=== PATIENT | female | born 1945 | race Caucasian/White ===

== ENCOUNTER 2023-10-14 21:09 | Emergency (ER) | payer MEDICARE, MEDICAID ==
[~2023-10-14] VITALS: Ht 165.1 cm; Wt 91.0 kg
[2023-10-14] MEDS: methylPREDNISolone sod succ 125mg/2ml vial IV ONE (22:04)
[2023-10-14 22:06] VITALS: RESP 18
[2023-10-14 22:30] VITALS: BP 131/78; PULSE 73; O2SAT 92
[2023-10-14 22:36] LABS: ALANINE AMINOTRANSFERASE 24 U/L (12-78); ALBUMIN 3.7 G/DL (3.4-5.0); ALKALINE PHOSPHATASE 57 IU/L (46-116); ANION GAP 8 (8-16); ASPARTATE AMINO TRANSFERASE 18 U/L (10-37); BILIRUBIN,TOTAL 0.2 MG/DL (0.1-1.0); BLOOD UREA NITROGEN 24 MG/DL (7-18); BUN/CREATININE RATIO 27.6 (10.0-20.0); CALCIUM 9.5 MG/DL (8.5-10.1); CHLORIDE 106 MMOL/L (99-107); CREATININE 0.87 MG/DL (0.40-0.90); GLUCOSE 103 MG/DL (70-104); POTASSIUM 4.7 MMOL/L (3.5-5.1); SODIUM 143 MMOL/L (135-145); TOTAL CARBON DIOXIDE 29.1 MMOL/L (24-32); TOTAL PROTEIN 7.4 G/DL (6.4-8.2); eCRCL 1 ML/MIN; eGFR 63 ML/MIN
[2023-10-14 22:43] LABS: PRO BRAIN NATRIURETIC PEPTIDE 216 PG/ML (0-450)
[2023-10-14 22:56] LABS: BASOPHILS # (AUTO) 0.1 X10'3 (0-0.2); BASOPHILS % (AUTO) 1.2 % (0-1); EOSINOPHILS # (AUTO) 0.3 X10'3 (0-0.9); EOSINOPHILS % (AUTO) 5.9 % (0-6); HEMATOCRIT 37.8 % (35.0-45.0); HEMOGLOBIN 12.6 g/dl (12.0-16.0); LYMPHOCYTES # (AUTO) 1.6 X10'3 (1.1-4.8); LYMPHOCYTES % (AUTO) 29.3 % (21-51); MEAN CORPUSCULAR HEMOGLOBIN 30.5 PG (27.0-31.0); MEAN CORPUSCULAR HGB CONC 33.3 g/dL (33.0-36.5); MEAN CORPUSCULAR VOLUME 91.4 FL (78-98); MEAN PLATELET VOLUME 8.2 FL (7.4-10.4); MONOCYTES # (AUTO) 0.5 X10'3 (0-0.9); MONOCYTES % (AUTO) 8.3 % (2-12); NEUTROPHILS # (AUTO) 3.1 X10'3 (1.8-7.7); NEUTROPHILS % (AUTO) 55.3 % (42-75); PLATELET COUNT 197 X10'3 (140-440); RED BLOOD COUNT 4.13 X10'6 (4.20-5.60); RED CELL DISTRIBUTION WIDTH 14.4 % (11.5-14.5); WHITE BLOOD COUNT 5.5 X10'3 (4.5-11.0)
[2023-10-15] MEDS ORDERED: APIX5TAB3 PO (00:23)
[2023-10-15] MEDS: apixaban 5mg tablet PO ONE (00:45)
[2023-10-15 01:43] VITALS: TEMP 98.6
== END 2023-10-15 03:01 | disposition home or self-care (01) ==
LOC: ER 21:10
DX: I48.92 Unspecified atrial flutter (principal); R50.9 Fever, unspecified; J45.909 Unspecified asthma, uncomplicated; Z88.0 Allergy status to penicillin; Z88.2 Allergy status to sulfonamides; Z91.041 Radiographic dye allergy status; Z79.899 Other long term (current) drug therapy
CPT/HCPCS: 36415; 71045; 80053; 83605; 83880; 84145; 84484; 85025; 87040; 93005; 96374; 99285; J2930; 87502; 87503

== ENCOUNTER 2024-04-30 16:15 | Inpatient (IN) | payer MEDICARE, OTHER ==
[~2024-04-30] VITALS: Ht 165.1 cm; Wt 73.2 kg
[~2024-04-30 16:15] MED LIST: APIX5TAB3 PO
[2024-04-30 17:24] LABS: BASOPHILS # (AUTO) 0.1 X10'3 (0-0.2); BASOPHILS % (AUTO) 1.1 % (0-1); EOSINOPHILS # (AUTO) 0.6 X10'3 (0-0.9); EOSINOPHILS % (AUTO) 7.6 % (0-6); LYMPHOCYTES # (AUTO) 1.4 X10'3 (1.1-4.8); LYMPHOCYTES % (AUTO) 17.5 % (21-51); MEAN CORPUSCULAR HEMOGLOBIN 29.7 PG (27.0-31.0); MEAN CORPUSCULAR HGB CONC 32.6 g/dL (33.0-36.5); MEAN PLATELET VOLUME 8.3 FL (7.4-10.4); MONOCYTES # (AUTO) 0.6 X10'3 (0-0.9); MONOCYTES % (AUTO) 7.3 % (2-12); NEUTROPHILS # (AUTO) 5.2 X10'3 (1.8-7.7); NEUTROPHILS % (AUTO) 66.5 % (42-75); PLATELET COUNT 296 X10'3 (140-440); RED BLOOD COUNT 4.72 X10'6 (4.20-5.60); RED CELL DISTRIBUTION WIDTH 14.6 % (11.5-14.5); WHITE BLOOD COUNT 7.8 X10'3 (4.5-11.0)
[2024-04-30] MEDS: ipratropium/albuterol 3ml nebule NEB STA (17:26)
[2024-04-30 17:27] VITALS: PULSE 80; RESP 20
[2024-04-30 17:31] VITALS: PULSE 80; RESP 18
[2024-04-30 17:38] LABS: ALANINE AMINOTRANSFERASE 20 U/L (12-78); ALBUMIN/GLOBULIN RATIO 0.7 (1.1-1.5); ALKALINE PHOSPHATASE 90 IU/L (46-116); ANION GAP 9 (8-16); ASPARTATE AMINO TRANSFERASE 29 U/L (10-37); BILIRUBIN,TOTAL 0.3 MG/DL (0.1-1.0); BLOOD UREA NITROGEN 23 MG/DL (7-18); BUN/CREATININE RATIO 27.7 (10.0-20.0); CALCIUM 9.1 MG/DL (8.5-10.1); CHLORIDE 103 MMOL/L (99-107); CREATININE 0.83 MG/DL (0.40-0.90); GLUCOSE 79 MG/DL (70-104); POTASSIUM 4.5 MMOL/L (3.5-5.1); SODIUM 140 MMOL/L (135-145); TOTAL CARBON DIOXIDE 28.1 MMOL/L (24-32); TOTAL PROTEIN 7.2 G/DL (6.4-8.2); eCRCL 51 ML/MIN; eGFR 67 ML/MIN
[2024-04-30] MEDS: CefTRIAXone/D5W-Rocephin 1gm 50 ML IV ONE (18:52)
[2024-04-30] MEDS: azithromycin/NS 500mg/250ml 250 ML IV ONE (19:22)
[2024-04-30] MEDS ORDERED: HYDR-3717 PO (19:52)
[2024-04-30] MEDS ORDERED: ACET-222 PO (19:52)
[2024-04-30] MEDS ORDERED: TRAM50TA2 PO (19:52)
[2024-04-30] MEDS ORDERED: LOP12.5T PO (19:52)
[2024-04-30] MEDS ORDERED: FLUT1DIS20 INH (19:52)
[2024-04-30] MEDS ORDERED: DULO20CA50 PO (19:52)
[2024-04-30] MEDS ORDERED: GABA300C PO (19:52)
[2024-04-30] MEDS ORDERED: OMEP40CA21 PO (19:52)
[2024-04-30] MEDS ORDERED: ALB0.5UD IH (19:52)
[2024-04-30] MEDS ORDERED: NITR100C PO (19:52)
[2024-04-30] MEDS ORDERED: mag hydrox/Alum hydrox/simeth 30ml oral suspension PO PRN (21:20)
[2024-04-30] MEDS ORDERED: magnesium Cl slow-release 64mg tablet PO PRN (21:20)
[2024-04-30] MEDS ORDERED: magnesium sulf-water 4G/100mL 100 ML IV PRN (21:20)
[2024-04-30] MEDS ORDERED: magnesium sulf-water 2g/50mL 50 ML IV PRN (21:20)
[2024-04-30] MEDS ORDERED: ondansetron/PF 4mg/2ml inj IV PRN (21:20)
[2024-04-30] MEDS ORDERED: acetaminophen 325mg tablet PO PRN (21:20)
[2024-04-30] MEDS ORDERED: potassium Cl 40MEQ/1/2NS 520ml 520 ML IV PRN (21:20)
[2024-04-30] MEDS ORDERED: potassium Cl 20 mEq SR tablet PO PRN ×2 (21:20)
[2024-04-30] MEDS ORDERED: morphine 2 MG/ML inj. syringe IV PRN ×2 (21:20)
[2024-04-30] MEDS: metoprolol tartrate 1mg/ml inj IV ONE ×2 (21:23→22:22)
[2024-04-30] MEDS ORDERED: traMADol 50MG tablet PO PRN (21:25)
[2024-04-30] MEDS ORDERED: hydrOXYzine 10 MG tablet PO PRN (21:25)
[2024-04-30] MEDS: metoprolol tartrate 50mg tablet PO SCH (22:10)
[2024-04-30] MEDS: diphenhydrAMINE 25mg capsule PO SCH (22:14)
[2024-04-30] MEDS: acetaminophen 325mg tablet PO SCH (22:14)
[2024-04-30 22:48] VITALS: BP 155/58; RESP 14; TEMP 99.2; O2SAT 94
[2024-04-30] MEDS: ipratropium/albuterol 3ml nebule NEB SCH (22:50)
[2024-05-01] VITALS (14 sets, daily range): BP systolic 117–148; BP diastolic 57–91; PULSE 76–116; RESP 14–20; TEMP 97.4–99.4; O2SAT 92–97
[2024-05-01] MEDS: gabapentin 300mg capsule PO SCH (00:27)
[2024-05-01] MEDS: methylPREDNISolone sod succ 125mg/2ml vial IV SCH (00:27)
[2024-05-01] MEDS: normal saline 1000ml 1,000 ML IV SCH (00:30)
[2024-05-01 07:14] LABS: BASOPHILS % (AUTO) 0.4 % (0-1); EOSINOPHILS % (AUTO) 0.2 % (0-6); HEMATOCRIT 40.9 % (35.0-45.0); HEMOGLOBIN 13.3 g/dl (12.0-16.0); LYMPHOCYTES # (AUTO) 0.7 X10'3 (1.1-4.8); MEAN CORPUSCULAR HEMOGLOBIN 29.4 PG (27.0-31.0); MEAN CORPUSCULAR HGB CONC 32.4 g/dL (33.0-36.5); MEAN CORPUSCULAR VOLUME 90.8 FL (78-98); MEAN PLATELET VOLUME 8.3 FL (7.4-10.4); MONOCYTES # (AUTO) 0.1 X10'3 (0-0.9); MONOCYTES % (AUTO) 1.1 % (2-12); NEUTROPHILS # (AUTO) 7.5 X10'3 (1.8-7.7); NEUTROPHILS % (AUTO) 90.3 % (42-75); PLATELET COUNT 233 X10'3 (140-440); RED BLOOD COUNT 4.51 X10'6 (4.20-5.60); RED CELL DISTRIBUTION WIDTH 14.3 % (11.5-14.5); WHITE BLOOD COUNT 8.3 X10'3 (4.5-11.0)
[2024-05-01 07:31] LABS: ALANINE AMINOTRANSFERASE 13 U/L (12-78); ALBUMIN 2.9 G/DL (3.4-5.0); ALBUMIN/GLOBULIN RATIO 0.7 (1.1-1.5); ALKALINE PHOSPHATASE 86 IU/L (46-116); ANION GAP 9 (8-16); ASPARTATE AMINO TRANSFERASE 32 U/L (10-37); BILIRUBIN,TOTAL 0.3 MG/DL (0.1-1.0); BLOOD UREA NITROGEN 24 MG/DL (7-18); BUN/CREATININE RATIO 33.3 (10.0-20.0); CALCIUM 9.2 MG/DL (8.5-10.1); CHLORIDE 107 MMOL/L (99-107); CREATININE 0.72 MG/DL (0.40-0.90); GLUCOSE 160 MG/DL (70-104); MAGNESIUM 1.7 MG/DL (1.5-2.4); POTASSIUM 4.7 MMOL/L (3.5-5.1); SODIUM 140 MMOL/L (135-145); TOTAL CARBON DIOXIDE 23.6 MMOL/L (24-32); TOTAL PROTEIN 6.8 G/DL (6.4-8.2); eCRCL 59 ML/MIN; eGFR 79 ML/MIN
[2024-05-01] MEDS: nitrofurantoin macrocrystal 100mg capsule PO SCH (08:00)
[2024-05-01] MEDS: K and/or MAG REPLACEMENT MC SCH (08:00)
[2024-05-01] MEDS: furosemide 20 MG/2 ML vial IV ONE (08:10)
[2024-05-01] MEDS: pantoprazole 40mg Tablet.DR PO SCH (08:21)
[2024-05-01] MEDS: docusate sod 100mg capsule PO SCH (08:21)
[2024-05-01] MEDS: duloxetine 20mg capsule.DR PO SCH (08:21)
[2024-05-01 08:25] LABS: C-REACTIVE PROTEIN 3.59 MG/DL (0.0-0.5); PRO BRAIN NATRIURETIC PEPTIDE 446 PG/ML (0-450)
[2024-05-01 08:41] LABS: HEMOGLOBIN A1C 5.7 % (4.5-6.2)
[2024-05-01 08:45] LABS: CHOL/HDL RATIO 4.5 (0.00-4.99); CHOLESTEROL 178 MG/DL (0-200); FREE T4 (FREE THYROXINE) 1.16 NG/DL (0.73-1.40); HDL CHOLESTEROL 40 MG/DL (35-60); LDL CHOLESTEROL 113 MG/DL (50-100); THYROID STIMULATING HORMONE 1.41 ulU/ml (0.34-4.50); TRIGLYCERIDES 70 MG/DL (20-135)
[2024-05-01 08:57] LABS: D-DIMER 0.42 MG/L FEU (0-0.50)
[2024-05-01] MEDS: ondansetron/PF 4mg/2ml inj IV PRN (12:09)
[2024-05-01] MEDS ORDERED: piperacillin/tazo 3.375gm/50ml 50 ML IV SCH (12:45)
[2024-05-01] MEDS: levoFLOXACIN-Levaquin 500mg/D5 100 ML IV SCH (13:10)
[2024-05-01] MEDS ORDERED: nitrofuran monohydrate/nitrofuran macrocrysal 100 MG (MacroBID) capsule PO SCH (14:11)
[2024-05-01] MEDS: azithromycin/NS 500mg/250ml 250 ML IV SCH (15:43)
[2024-05-01] MEDS ORDERED: CefTRIAXone/D5W-Rocephin 1gm 50 ML IV SCH (16:00)
[2024-05-01] MEDS ORDERED: metroNIDAZOLE-Flagyl 500mg/NS 100 ML IV SCH (16:00)
[2024-05-01] MEDS: piperacillin/tazo 3.375gm/50ml 50 ML IV SCH (16:55)
[2024-05-01] MEDS: apixaban 5mg tablet PO SCH (20:31)
[2024-05-02] VITALS (21 sets, daily range): BP systolic 74–158; BP diastolic 55–70; PULSE 74–101; RESP 12–22; TEMP 97.2–99.1; O2SAT 92–97
[2024-05-02 06:36] LABS: BASOPHILS % (AUTO) 0 % (0-1); EOSINOPHILS % (AUTO) 0 % (0-6); HEMATOCRIT 41.3 % (35.0-45.0); HEMOGLOBIN 13.2 g/dl (12.0-16.0); LYMPHOCYTES # (AUTO) 0.9 X10'3 (1.1-4.8); LYMPHOCYTES % (AUTO) 12.7 % (21-51); MEAN CORPUSCULAR VOLUME 90.6 FL (78-98); MEAN PLATELET VOLUME 8.3 FL (7.4-10.4); MONOCYTES # (AUTO) 0.3 X10'3 (0-0.9); MONOCYTES % (AUTO) 3.9 % (2-12); NEUTROPHILS # (AUTO) 5.7 X10'3 (1.8-7.7); NEUTROPHILS % (AUTO) 83.4 % (42-75); PLATELET COUNT 320 X10'3 (140-440); RED BLOOD COUNT 4.55 X10'6 (4.20-5.60); RED CELL DISTRIBUTION WIDTH 14.7 % (11.5-14.5); WHITE BLOOD COUNT 6.9 X10'3 (4.5-11.0)
[2024-05-02 06:55] LABS: ALANINE AMINOTRANSFERASE 19 U/L (12-78); ALBUMIN/GLOBULIN RATIO 0.8 (1.1-1.5); ALKALINE PHOSPHATASE 74 IU/L (46-116); ANION GAP 10 (8-16); ASPARTATE AMINO TRANSFERASE 29 U/L (10-37); BILIRUBIN,TOTAL 0.3 MG/DL (0.1-1.0); BLOOD UREA NITROGEN 27 MG/DL (7-18); BUN/CREATININE RATIO 31.8 (10.0-20.0); CALCIUM 9.3 MG/DL (8.5-10.1); CHLORIDE 105 MMOL/L (99-107); CREATININE 0.85 MG/DL (0.40-0.90); GLUCOSE 149 MG/DL (70-104); MAGNESIUM 1.8 MG/DL (1.5-2.4); SODIUM 140 MMOL/L (135-145); eCRCL 50 ML/MIN; eGFR 65 ML/MIN
[2024-05-02 07:15] LABS: POTASSIUM 4.3 MMOL/L (3.5-5.1)
[2024-05-02] MEDS ORDERED: metoprolol tartrate 25mg tablet PO SCH (09:25)
[2024-05-02] MEDS: metoprolol tartrate 25mg tablet PO SCH (10:09)
[2024-05-02] MEDS: nitrofuran monohydrate/nitrofuran macrocrysal 100 MG (MacroBID) capsule PO SCH (10:15)
[2024-05-02] MEDS ORDERED: gabapentin 300mg capsule PO SCH (16:32)
[2024-05-02] MEDS: gabapentin 300mg capsule PO SCH ×2 (17:21→23:13)
[2024-05-02 18:20] LABS: ABG BASE EXCESS -0.2 mmol/L (-2.0-3.0); ABG HCO3 25.1 mmol/L (21.0-28.0); ABG OXYGEN SATURATION 95.6 % (94.0-98.0); ABG PCO2 (T) 42.2 mmHg (32.0-45.0); ABG PO2 (T) 70.9 mmHg (83.0-108.0); ALLEN'S TEST POSITIVE; FCOHb 1.8 % (0.5-1.5); FHHb 4.3 % (0.0-5.0); FMetHb 0.3 % (0.0-1.5); FO2Hb 93.6 % (94.0-98.0); MODE NASAL CANNULA; PATIENT TEMPERATURE 36.4; TOTAL HEMOGLOBIN 13.8 G/dl (12.0-16.0)
[2024-05-02] MEDS: ipratropium/albuterol 3ml nebule NEB PRN (20:12)
[2024-05-02] MEDS: acetylcysteine 200 MG/ml 4ml vial INH ONE (20:13)
[2024-05-02] MEDS: magnesium hydroxide 30ml (MOM) UD suspension PO PRN (20:23)
[2024-05-02] MEDS: furosemide 20 MG/2 ML vial IV SCH (20:33)
[2024-05-03] VITALS (18 sets, daily range): BP systolic 101–144; BP diastolic 57–85; PULSE 58–88; RESP 12–19; TEMP 97–98.5; O2SAT 92–99
[2024-05-03 02:53] LABS: BILIRUBIN,URINE NEGATIVE (Neg); CLARITY,URINE CLEAR (Clear); COLOR,URINE YELLOW (Yellow); GLUCOSE, URINE NEGATIVE (Neg); KETONES,URINE NEGATIVE (Neg); LEUKOCYTE ESTERASE ,URINE NEGATIVE (Neg); NITRITES, URINE NEGATIVE (Neg); OCCULT BLOOD,URINE NEGATIVE (Neg); PH,URINE 5.5 (4.8-8.0); PROTEIN,URINE NEGATIVE (Neg); UROBILINOGEN,URINE 0.2 E.U/dL (0.2-1.0)
[2024-05-03 03:02] LABS: UA COLLECTION TYPE STRAIGHT CATH
[2024-05-03] MEDS: acetylcysteine 200 MG/ml 4ml vial INH ONE (03:22)
[2024-05-03 07:10] LABS: BASOPHILS % (AUTO) 0 % (0-1); EOSINOPHILS % (AUTO) 0 % (0-6); HEMATOCRIT 39.3 % (35.0-45.0); HEMOGLOBIN 12.8 g/dl (12.0-16.0); LYMPHOCYTES # (AUTO) 0.6 X10'3 (1.1-4.8); LYMPHOCYTES % (AUTO) 9.4 % (21-51); MEAN CORPUSCULAR HEMOGLOBIN 29.5 PG (27.0-31.0); MEAN CORPUSCULAR HGB CONC 32.5 g/dL (33.0-36.5); MEAN CORPUSCULAR VOLUME 90.7 FL (78-98); MEAN PLATELET VOLUME 8.3 FL (7.4-10.4); MONOCYTES # (AUTO) 0.3 X10'3 (0-0.9); MONOCYTES % (AUTO) 4.4 % (2-12); NEUTROPHILS # (AUTO) 5.7 X10'3 (1.8-7.7); NEUTROPHILS % (AUTO) 86.2 % (42-75); PLATELET COUNT 270 X10'3 (140-440); RED BLOOD COUNT 4.33 X10'6 (4.20-5.60); RED CELL DISTRIBUTION WIDTH 14.4 % (11.5-14.5); WHITE BLOOD COUNT 6.6 X10'3 (4.5-11.0)
[2024-05-03 07:50] LABS: ALANINE AMINOTRANSFERASE 19 U/L (12-78); ALBUMIN/GLOBULIN RATIO 0.8 (1.1-1.5); ALKALINE PHOSPHATASE 60 IU/L (46-116); ANION GAP 6 (8-16); ASPARTATE AMINO TRANSFERASE 18 U/L (10-37); BILIRUBIN,TOTAL 0.4 MG/DL (0.1-1.0); BLOOD UREA NITROGEN 33 MG/DL (7-18); BUN/CREATININE RATIO 33.3 (10.0-20.0); CALCIUM 9.5 MG/DL (8.5-10.1); CHLORIDE 106 MMOL/L (99-107); CREATININE 0.99 MG/DL (0.40-0.90); GLUCOSE 168 MG/DL (70-104); MAGNESIUM 2.1 MG/DL (1.5-2.4); POTASSIUM 4.4 MMOL/L (3.5-5.1); SODIUM 142 MMOL/L (135-145); TOTAL CARBON DIOXIDE 29.7 MMOL/L (24-32); TOTAL PROTEIN 6.8 G/DL (6.4-8.2); eCRCL 43 ML/MIN; eGFR 54 ML/MIN
[2024-05-04] VITALS (14 sets, daily range): BP systolic 103–151; BP diastolic 55–79; PULSE 57–90; RESP 14–20; TEMP 96.9–98.9; O2SAT 91–97
[2024-05-04 07:50] LABS: BASOPHILS % (AUTO) 0 % (0-1); EOSINOPHILS % (AUTO) 0 % (0-6); HEMATOCRIT 38.2 % (35.0-45.0); HEMOGLOBIN 12.1 g/dl (12.0-16.0); LYMPHOCYTES # (AUTO) 0.6 X10'3 (1.1-4.8); LYMPHOCYTES % (AUTO) 13.7 % (21-51); MEAN CORPUSCULAR HEMOGLOBIN 28.9 PG (27.0-31.0); MEAN CORPUSCULAR HGB CONC 31.8 g/dL (33.0-36.5); MEAN PLATELET VOLUME 8.4 FL (7.4-10.4); MONOCYTES # (AUTO) 0.2 X10'3 (0-0.9); MONOCYTES % (AUTO) 4.2 % (2-12); NEUTROPHILS # (AUTO) 3.8 X10'3 (1.8-7.7); NEUTROPHILS % (AUTO) 82.1 % (42-75); PLATELET COUNT 215 X10'3 (140-440); RED CELL DISTRIBUTION WIDTH 14.6 % (11.5-14.5); WHITE BLOOD COUNT 4.7 X10'3 (4.5-11.0)
[2024-05-04 08:02] LABS: ALANINE AMINOTRANSFERASE 25 U/L (12-78); ALBUMIN/GLOBULIN RATIO 0.8 (1.1-1.5); ALKALINE PHOSPHATASE 49 IU/L (46-116); ANION GAP 2 (8-16); ASPARTATE AMINO TRANSFERASE 17 U/L (10-37); BILIRUBIN,TOTAL 0.4 MG/DL (0.1-1.0); BLOOD UREA NITROGEN 30 MG/DL (7-18); CALCIUM 9.3 MG/DL (8.5-10.1); CHLORIDE 105 MMOL/L (99-107); CREATININE 0.81 MG/DL (0.40-0.90); GLUCOSE 156 MG/DL (70-104); POTASSIUM 4.5 MMOL/L (3.5-5.1); SODIUM 141 MMOL/L (135-145); TOTAL CARBON DIOXIDE 33.7 MMOL/L (24-32); TOTAL PROTEIN 6.7 G/DL (6.4-8.2); eCRCL 52 ML/MIN; eGFR 69 ML/MIN
[2024-05-04] MEDS: bisacodyl 10mg suppository rectal RC STA (16:32)
[2024-05-04] MEDS: docusate sod 100mg capsule PO SCH (20:18)
[2024-05-05] VITALS (18 sets, daily range): BP systolic 109–159; BP diastolic 31–84; PULSE 57–89; RESP 12–19; TEMP 97.1–98.2; O2SAT 93–100
[2024-05-05 08:34] LABS: BASOPHILS % (AUTO) 0.1 % (0-1); EOSINOPHILS % (AUTO) 0 % (0-6); HEMATOCRIT 38.3 % (35.0-45.0); HEMOGLOBIN 12.3 g/dl (12.0-16.0); LYMPHOCYTES # (AUTO) 0.8 X10'3 (1.1-4.8); LYMPHOCYTES % (AUTO) 16.7 % (21-51); MEAN CORPUSCULAR HEMOGLOBIN 29.4 PG (27.0-31.0); MEAN CORPUSCULAR HGB CONC 32.2 g/dL (33.0-36.5); MEAN CORPUSCULAR VOLUME 91.4 FL (78-98); MEAN PLATELET VOLUME 8.4 FL (7.4-10.4); MONOCYTES # (AUTO) 0.2 X10'3 (0-0.9); MONOCYTES % (AUTO) 4.8 % (2-12); NEUTROPHILS # (AUTO) 3.7 X10'3 (1.8-7.7); NEUTROPHILS % (AUTO) 78.4 % (42-75); PLATELET COUNT 180 X10'3 (140-440); RED BLOOD COUNT 4.19 X10'6 (4.20-5.60); RED CELL DISTRIBUTION WIDTH 14.5 % (11.5-14.5); WHITE BLOOD COUNT 4.8 X10'3 (4.5-11.0)
[2024-05-05 08:45] LABS: ALANINE AMINOTRANSFERASE 26 U/L (12-78); ALBUMIN 2.9 G/DL (3.4-5.0); ALBUMIN/GLOBULIN RATIO 0.8 (1.1-1.5); ALKALINE PHOSPHATASE 46 IU/L (46-116); ANION GAP 6 (8-16); ASPARTATE AMINO TRANSFERASE 18 U/L (10-37); BILIRUBIN,TOTAL 0.5 MG/DL (0.1-1.0); BLOOD UREA NITROGEN 29 MG/DL (7-18); BUN/CREATININE RATIO 37.7 (10.0-20.0); CHLORIDE 103 MMOL/L (99-107); CREATININE 0.77 MG/DL (0.40-0.90); GLUCOSE 146 MG/DL (70-104); POTASSIUM 4.4 MMOL/L (3.5-5.1); SODIUM 141 MMOL/L (135-145); TOTAL CARBON DIOXIDE 32.5 MMOL/L (24-32); TOTAL PROTEIN 6.5 G/DL (6.4-8.2); eCRCL 55 ML/MIN; eGFR 73 ML/MIN
[2024-05-05] MEDS ORDERED: PRED10TA23 PO (09:05)
[2024-05-05] MEDS ORDERED: EMPA10TA PO (10:28)
[2024-05-06] VITALS (18 sets, daily range): BP systolic 111–161; BP diastolic 55–73; PULSE 52–112; RESP 12–20; TEMP 97.3–99.1; O2SAT 92–99
[2024-05-06] MEDS: lactose-reduced food (Ensure Enlive) - 237ml bottle PO SCH (17:30)
[2024-05-07] VITALS (9 sets, daily range): BP systolic 135–153; BP diastolic 73–81; PULSE 50–72; RESP 14–19; TEMP 97.7–98.9; O2SAT 75–98
[2024-05-07] MEDS: piperacillin/tazo 3.375gm/50ml 50 ML IV SCH (00:23)
== END 2024-05-07 14:59 | DRG 177 ==
LOC: ER 16:15 → ED HOLD 19:31 → EDBEDREQ 20:36 → EDBEDREQSVC 21:34 → EDBEDREQ 21:34 → PCU 3S 22:36
PROVIDERS: ADMIT Internal Medicine Critical Care Medicine; ATTEND Family Medicine
DX: J69.0 Pneumonitis due to inhalation of food and vomit (principal); I50.33 Acute on chronic diastolic (congestive) heart failure; J96.01 Acute respiratory failure with hypoxia; I48.92 Unspecified atrial flutter; J44.9 Chronic obstructive pulmonary disease, unspecified; Z20.822 Contact with and (suspected) exposure to COVID-19; I11.0 Hypertensive heart disease with heart failure; F32.A Depression, unspecified; G20.A1 Parkinson's disease without dyskinesia, without mention of fluctuations; F02.80 Dementia in other diseases classified elsewhere, unspecified severity, without behavioral disturbance, psychotic disturbance, mood disturbance, and anxiety; Z74.01 Bed confinement status
CPT/HCPCS: 36415; 36600; 71045; 71250; 80053; 80061; 81003; 82330; 82803; 83036; 83605; 83735; 83880; 83970; 84145; 84439; 84443; 85018; 85025; 85379; 85651; 86140; 87040; 87081; 87811; 92508; 92616; 93005; 93306; 94640; 94760; 96365; 96367; 97161; 97530; 99285; A6213; A6250; G0378; J0456; J0696; J1940; J2405; J2543; J2919; J3490; J7030; J7040; Q0163

== ENCOUNTER 2024-05-10 16:08 | Inpatient (IN) | payer MEDICARE, OTHER, MEDICAID ==
[~2024-05-10] VITALS: Ht 165.1 cm; Wt 81.0 kg
[~2024-05-10 16:08] MED LIST changes: +ACET-222 PO; +ALB0.5UD IH; +DULO20CA50 PO; +EMPA10TA PO; +FLUT1DIS20 INH; +GABA300C PO; +HYDR-3717 PO; +LOP12.5T PO; +NITR100C PO; +OMEP40CA21 PO; +PRED10TA23 PO; +TRAM50TA2 PO
[2024-05-10 17:42] LABS: BILIRUBIN,URINE NEGATIVE (Neg); CLARITY,URINE CLEAR (Clear); COLOR,URINE YELLOW (Yellow); GLUCOSE, URINE NEGATIVE (Neg); KETONES,URINE NEGATIVE (Neg); LEUKOCYTE ESTERASE ,URINE NEGATIVE (Neg); NITRITES, URINE NEGATIVE (Neg); OCCULT BLOOD,URINE NEGATIVE (Neg); PROTEIN,URINE NEGATIVE (Neg); UROBILINOGEN,URINE 0.2 E.U/dL (0.2-1.0)
[2024-05-10 17:45] LABS: BASOPHILS % (AUTO) 0.1 % (0-1); EOSINOPHILS # (AUTO) 0.1 X10'3 (0-0.9); EOSINOPHILS % (AUTO) 1.2 % (0-6); HEMATOCRIT 41.8 % (35.0-45.0); HEMOGLOBIN 13.5 g/dl (12.0-16.0); LYMPHOCYTES # (AUTO) 1.3 X10'3 (1.1-4.8); LYMPHOCYTES % (AUTO) 11.4 % (21-51); MEAN CORPUSCULAR HEMOGLOBIN 29.2 PG (27.0-31.0); MEAN CORPUSCULAR HGB CONC 32.3 g/dL (33.0-36.5); MEAN CORPUSCULAR VOLUME 90.4 FL (78-98); MEAN PLATELET VOLUME 9.2 FL (7.4-10.4); MONOCYTES # (AUTO) 0.9 X10'3 (0-0.9); MONOCYTES % (AUTO) 7.7 % (2-12); NEUTROPHILS # (AUTO) 8.8 X10'3 (1.8-7.7); NEUTROPHILS % (AUTO) 79.6 % (42-75); PLATELET COUNT 219 X10'3 (140-440); RED BLOOD COUNT 4.63 X10'6 (4.20-5.60); WHITE BLOOD COUNT 11.1 X10'3 (4.5-11.0)
[2024-05-10 17:52] LABS: UA COLLECTION TYPE FOLEY CATH
[2024-05-10 18:04] LABS: ALANINE AMINOTRANSFERASE 52 U/L (12-78); ALBUMIN/GLOBULIN RATIO 0.8 (1.1-1.5); ALKALINE PHOSPHATASE 55 IU/L (46-116); ANION GAP 4 (8-16); ASPARTATE AMINO TRANSFERASE 24 U/L (10-37); BILIRUBIN,TOTAL 0.7 MG/DL (0.1-1.0); BLOOD UREA NITROGEN 21 MG/DL (7-18); BUN/CREATININE RATIO 36.8 (10.0-20.0); CALCIUM 9.1 MG/DL (8.5-10.1); CHLORIDE 96 MMOL/L (99-107); CREATININE 0.57 MG/DL (0.40-0.90); GLUCOSE 115 MG/DL (70-104); POTASSIUM 4.5 MMOL/L (3.5-5.1); SODIUM 133 MMOL/L (135-145); TOTAL CARBON DIOXIDE 32.8 MMOL/L (24-32); TOTAL PROTEIN 6.7 G/DL (6.4-8.2); eCRCL 74 ML/MIN; eGFR > 90 ML/MIN
[2024-05-10] MEDS ORDERED: magnesium hydroxide 30ml (MOM) UD suspension PO PRN (19:50)
[2024-05-10] MEDS ORDERED: ondansetron/PF 4mg/2ml inj IV PRN (19:50)
[2024-05-10] MEDS ORDERED: potassium Cl 20 mEq SR tablet PO PRN (19:50)
[2024-05-10] MEDS ORDERED: magnesium sulf-water 2g/50mL 50 ML IV PRN (19:50)
[2024-05-10] MEDS ORDERED: magnesium Cl slow-release 64mg tablet PO PRN (19:50)
[2024-05-10] MEDS ORDERED: magnesium sulf-water 4G/100mL 100 ML IV PRN (19:50)
[2024-05-10] MEDS ORDERED: potassium Cl 40MEQ/1/2NS 520ml 520 ML IV PRN (19:50)
[2024-05-10] MEDS ORDERED: mag hydrox/Alum hydrox/simeth 30ml oral suspension PO PRN (19:50)
[2024-05-10] MEDS ORDERED: morphine 2 MG/ML inj. syringe IV PRN ×2 (19:50)
[2024-05-10] MEDS ORDERED: acetaminophen 325mg tablet PO PRN (19:50)
[2024-05-10] MEDS ORDERED: VANCOMYCIN 1,500MG inj. 1,500 MG in normal saline 500ml IV soln 300 ML IV SCH (20:00)
[2024-05-10] MEDS: VANCOMYCIN 1,500MG inj. 1,500 MG in normal saline 500ml IV soln 300 ML IV ONE (20:22)
[2024-05-10 20:30] LABS: PRO BRAIN NATRIURETIC PEPTIDE 165 PG/ML (0-450)
[2024-05-10 20:43] LABS: APTT 27 SECONDS (22-32); PROTHROMBIN TIME 10.9 SECONDS (9.0-12.0)
[2024-05-10 20:44] LABS: URINE AMPHETAMINE SCREEN NEGATIVE (Neg); URINE BARBITUATE SCREEN NEGATIVE (Neg); URINE BENZODIAZEPINES SCREEN NEGATIVE (Neg); URINE CANNABINOID SCREEN NEGATIVE (Neg); URINE COCAINE SCREEN NEGATIVE (Neg); URINE METHADONE SCREEN NEGATIVE (Neg); URINE OPIATE SCREEN NEGATIVE (Neg); URINE PHENCYCLIDINE SCREEN NEGATIVE (Neg)
[2024-05-10] MEDS ORDERED: albuterol 2.5 MG/3 ML nebule NEB PRN (20:55)
[2024-05-10 22:05] VITALS: BP 124/76; PULSE 85; RESP 16; TEMP 98.2; O2SAT 93
[2024-05-10] MEDS: K and/or MAG REPLACEMENT MC SCH (23:00)
[2024-05-10] MEDS: docusate sod 100mg capsule PO SCH (23:13)
[2024-05-10] MEDS: cefepime 2g/NS 100ml ADVANTAGE 100 ML IV ONE (23:56)
[2024-05-10] MEDS: normal saline 1000ml 1,000 ML IV SCH (23:58)
[2024-05-10] MEDS: furosemide 10 MG/1 ML 10ml inj IV ONE (23:58)
[2024-05-11 02:00] VITALS: BP 160/97; PULSE 91; RESP 16; TEMP 98.5; O2SAT 91
[2024-05-11] MEDS ORDERED: traMADol 50MG tablet PO PRN (02:50)
[2024-05-11] MEDS ORDERED: atorvastatin 20mg tablet PO SCH (04:50)
[2024-05-11] MEDS: aspirin 81mg, enteric-coated 1 TAB TABLET.DR PO ONE (05:28)
[2024-05-11] MEDS: apixaban 5mg tablet PO SCH (05:28)
[2024-05-11 06:00] VITALS: BP 160/94; PULSE 89; RESP 18; TEMP 98.6; O2SAT 93
[2024-05-11 07:11] LABS: HEMOGLOBIN A1C 5.6 % (4.5-6.2)
[2024-05-11 07:29] LABS: ALANINE AMINOTRANSFERASE 37 U/L (12-78); ALBUMIN 2.9 G/DL (3.4-5.0); ALBUMIN/GLOBULIN RATIO 0.8 (1.1-1.5); ALKALINE PHOSPHATASE 53 IU/L (46-116); ANION GAP 7 (8-16); ASPARTATE AMINO TRANSFERASE 21 U/L (10-37); BILIRUBIN,TOTAL 0.7 MG/DL (0.1-1.0); BLOOD UREA NITROGEN 17 MG/DL (7-18); BUN/CREATININE RATIO 26.6 (10.0-20.0); CALCIUM 8.8 MG/DL (8.5-10.1); CHLORIDE 98 MMOL/L (99-107); CREATININE 0.64 MG/DL (0.40-0.90); GLUCOSE 120 MG/DL (70-104); SODIUM 135 MMOL/L (135-145); TOTAL CARBON DIOXIDE 30.3 MMOL/L (24-32); TOTAL PROTEIN 6.6 G/DL (6.4-8.2); eCRCL 66 ML/MIN; eGFR 90 ML/MIN
[2024-05-11 07:30] LABS: CHOL/HDL RATIO 3.7 (0.00-4.99); CHOLESTEROL 212 MG/DL (0-200); HDL CHOLESTEROL 57 MG/DL (35-60); LDL CHOLESTEROL 124 MG/DL (50-100); TRIGLYCERIDES 122 MG/DL (20-135)
[2024-05-11] MEDS ORDERED: pantoprazole 40mg Tablet.DR PO SCH (07:30)
[2024-05-11 07:36] LABS: BASOPHILS % (AUTO) 0.2 % (0-1); EOSINOPHILS # (AUTO) 0.3 X10'3 (0-0.9); EOSINOPHILS % (AUTO) 2.7 % (0-6); HEMATOCRIT 40.7 % (35.0-45.0); HEMOGLOBIN 13.3 g/dl (12.0-16.0); LYMPHOCYTES # (AUTO) 1.3 X10'3 (1.1-4.8); MEAN CORPUSCULAR HEMOGLOBIN 29.3 PG (27.0-31.0); MEAN CORPUSCULAR HGB CONC 32.6 g/dL (33.0-36.5); MEAN CORPUSCULAR VOLUME 89.8 FL (78-98); MEAN PLATELET VOLUME 9.6 FL (7.4-10.4); MONOCYTES # (AUTO) 1.1 X10'3 (0-0.9); MONOCYTES % (AUTO) 10.4 % (2-12); NEUTROPHILS # (AUTO) 7.5 X10'3 (1.8-7.7); NEUTROPHILS % (AUTO) 73.7 % (42-75); PLATELET COUNT 210 X10'3 (140-440); RED BLOOD COUNT 4.53 X10'6 (4.20-5.60); RED CELL DISTRIBUTION WIDTH 14.6 % (11.5-14.5); WHITE BLOOD COUNT 10.2 X10'3 (4.5-11.0)
[2024-05-11] MEDS: nitrofurantoin macrocrystal 100mg capsule PO SCH (08:00)
[2024-05-11] MEDS: EMPAGLIFLOZIN 10 MG TABLET PO SCH (08:00)
[2024-05-11] MEDS ORDERED: apixaban 5mg tablet PO SCH (08:00)
[2024-05-11] MEDS: furosemide 40mg/4ml inj IV SCH (08:56)
[2024-05-11] MEDS: duloxetine 20mg capsule.DR PO SCH (08:58)
[2024-05-11] MEDS: atorvastatin 20mg tablet PO SCH (08:58)
[2024-05-11] MEDS: pantoprazole 40 MG vial IV SCH (08:59)
[2024-05-11] MEDS: metoprolol tartrate 25mg tablet PO SCH ×2 (08:59→10:48)
[2024-05-11 09:53] VITALS: BP 155/90; PULSE 93; RESP 20; TEMP 97.6; O2SAT 92
[2024-05-11] MEDS: CefTRIAXone/D5W-Rocephin 1gm 50 ML IV SCH (10:43)
[2024-05-11] MEDS ORDERED: iohexol 350MG/ML 100ml bottle IV ONE ×2 (11:53→12:28)
[2024-05-11 18:00] VITALS: BP 163/92; PULSE 68; RESP 15; TEMP 97.7; O2SAT 95
[2024-05-11 22:00] VITALS: BP 153/82; PULSE 79; RESP 16; TEMP 98.6; O2SAT 96
[2024-05-12 02:00] VITALS: BP 148/74; PULSE 74; RESP 16; TEMP 98.2; O2SAT 95
[2024-05-12 05:05] LABS: BASOPHILS % (AUTO) 0.2 % (0-1); EOSINOPHILS # (AUTO) 0.2 X10'3 (0-0.9); EOSINOPHILS % (AUTO) 1.5 % (0-6); HEMATOCRIT 42.6 % (35.0-45.0); HEMOGLOBIN 13.8 g/dl (12.0-16.0); LYMPHOCYTES % (AUTO) 7.9 % (21-51); MEAN CORPUSCULAR HEMOGLOBIN 28.9 PG (27.0-31.0); MEAN CORPUSCULAR HGB CONC 32.3 g/dL (33.0-36.5); MEAN CORPUSCULAR VOLUME 89.3 FL (78-98); MEAN PLATELET VOLUME 9.2 FL (7.4-10.4); NEUTROPHILS # (AUTO) 10.6 X10'3 (1.8-7.7); NEUTROPHILS % (AUTO) 82.4 % (42-75); PLATELET COUNT 246 X10'3 (140-440); RED BLOOD COUNT 4.77 X10'6 (4.20-5.60); RED CELL DISTRIBUTION WIDTH 14.2 % (11.5-14.5); WHITE BLOOD COUNT 12.9 X10'3 (4.5-11.0)
[2024-05-12 05:22] LABS: ALANINE AMINOTRANSFERASE 44 U/L (12-78); ALBUMIN 3.2 G/DL (3.4-5.0); ALBUMIN/GLOBULIN RATIO 0.8 (1.1-1.5); ALKALINE PHOSPHATASE 63 IU/L (46-116); ANION GAP 8 (8-16); ASPARTATE AMINO TRANSFERASE 20 U/L (10-37); BILIRUBIN,TOTAL 0.7 MG/DL (0.1-1.0); BLOOD UREA NITROGEN 18 MG/DL (7-18); BUN/CREATININE RATIO 26.1 (10.0-20.0); CALCIUM 9.6 MG/DL (8.5-10.1); CHLORIDE 93 MMOL/L (99-107); CREATININE 0.69 MG/DL (0.40-0.90); GLUCOSE 137 MG/DL (70-104); POTASSIUM 3.3 MMOL/L (3.5-5.1); SODIUM 133 MMOL/L (135-145); TOTAL CARBON DIOXIDE 32.4 MMOL/L (24-32); TOTAL PROTEIN 7.4 G/DL (6.4-8.2); eCRCL 61 ML/MIN; eGFR 82 ML/MIN
[2024-05-12 07:07] VITALS: BP 163/74; PULSE 80; RESP 16; TEMP 98; O2SAT 93
[2024-05-12 07:15] VITALS: RESP 16; O2SAT 93
[2024-05-12] MEDS: potassium Cl 20 mEq SR tablet PO PRN (09:11)
[2024-05-12] MEDS: nitrofurantoin macrocrystal 50mg capsule PO SCH (09:33)
[2024-05-12 10:00] VITALS: BP 117/62; PULSE 88; RESP 16; TEMP 98.2; O2SAT 94
[2024-05-12] MEDS ORDERED: ATOR20TA66 PO (10:15)
== END 2024-05-12 13:40 | DRG 65 ==
LOC: ER 16:09 → ED HOLD 19:58 → ORTHO 4S 22:00
PROVIDERS: ADMIT Surgery Surgical Critical Care; ATTEND Internal Medicine
PROC: B3251ZZ Computerized Tomography (CT Scan) of Bilateral Common Carotid Arteries using Low Osmolar Contrast (ICD-10-PCS; principal; 2024-05-11)
PROC: B32G1ZZ Computerized Tomography (CT Scan) of Bilateral Vertebral Arteries using Low Osmolar Contrast (ICD-10-PCS; 2024-05-11)
PROC: B32R1ZZ Computerized Tomography (CT Scan) of Intracranial Arteries using Low Osmolar Contrast (ICD-10-PCS; 2024-05-11)
PROC: B3281ZZ Computerized Tomography (CT Scan) of Bilateral Internal Carotid Arteries using Low Osmolar Contrast (ICD-10-PCS; 2024-05-11)
DX: I63.9 Cerebral infarction, unspecified (principal); E87.1 Hypo-osmolality and hyponatremia; I48.92 Unspecified atrial flutter; J45.909 Unspecified asthma, uncomplicated; G20.A1 Parkinson's disease without dyskinesia, without mention of fluctuations; I27.20 Pulmonary hypertension, unspecified; E78.5 Hyperlipidemia, unspecified; F41.9 Anxiety disorder, unspecified; R29.718 NIHSS score 18; G83.31 Monoplegia, unspecified affecting right dominant side; I50.9 Heart failure, unspecified; I11.0 Hypertensive heart disease with heart failure; I48.91 Unspecified atrial fibrillation; K44.9 Diaphragmatic hernia without obstruction or gangrene; Z88.0 Allergy status to penicillin; Z88.2 Allergy status to sulfonamides; Z82.49 Family history of ischemic heart disease and other diseases of the circulatory system
CPT/HCPCS: 36415; 70450; 70496; 70498; 70551; 71045; 80053; 80061; 80305; 81003; 82140; 83036; 83605; 83735; 83880; 84145; 84484; 85025; 85610; 85730; 87040; 87081; 92508; 92616; 93005; 93308; 97161; 97530; 99285; A6209; A6212; A6213; A6222; A6402; A6446; A6449; C1758; G0378; J0692; J0696; J1940; J2470; J3370; J7030; J7040; Q9967

== ENCOUNTER 2024-06-25 12:39 | Inpatient (IN) | payer MEDICARE, OTHER, MEDICAID ==
[~2024-06-25] VITALS: Ht 165.1 cm; Wt 77.5 kg
[~2024-06-25 12:39] MED LIST changes: +ATOR20TA66 PO; -PRED10TA23 PO
[2024-06-25 13:15] LABS: BASOPHILS # (AUTO) 0.1 X10'3 (0-0.2); BASOPHILS % (AUTO) 0.5 % (0-1); EOSINOPHILS # (AUTO) 0.6 X10'3 (0-0.9); EOSINOPHILS % (AUTO) 4.2 % (0-6); HEMATOCRIT 44.1 % (35.0-45.0); HEMOGLOBIN 14.4 g/dl (12.0-16.0); LYMPHOCYTES # (AUTO) 1.2 X10'3 (1.1-4.8); LYMPHOCYTES % (AUTO) 9.1 % (21-51); MEAN CORPUSCULAR HEMOGLOBIN 29.4 PG (27.0-31.0); MEAN CORPUSCULAR HGB CONC 32.6 g/dL (33.0-36.5); MEAN CORPUSCULAR VOLUME 90.2 FL (78-98); MEAN PLATELET VOLUME 8.2 FL (7.4-10.4); MONOCYTES # (AUTO) 0.9 X10'3 (0-0.9); MONOCYTES % (AUTO) 6.7 % (2-12); NEUTROPHILS # (AUTO) 10.4 X10'3 (1.8-7.7); NEUTROPHILS % (AUTO) 79.5 % (42-75); PLATELET COUNT 474 X10'3 (140-440); RED BLOOD COUNT 4.89 X10'6 (4.20-5.60); RED CELL DISTRIBUTION WIDTH 16.6 % (11.5-14.5); WHITE BLOOD COUNT 13.1 X10'3 (4.5-11.0)
[2024-06-25 14:26] LABS: ALANINE AMINOTRANSFERASE 37 U/L (12-78); ALBUMIN 2.2 G/DL (3.4-5.0); ALBUMIN/GLOBULIN RATIO 0.6 (1.1-1.5); ALKALINE PHOSPHATASE 299 IU/L (46-116); ANION GAP 7 (8-16); ASPARTATE AMINO TRANSFERASE 40 U/L (10-37); BILIRUBIN,TOTAL 0.7 MG/DL (0.1-1.0); BLOOD UREA NITROGEN 17 MG/DL (7-18); BUN/CREATININE RATIO 31.5 (10.0-20.0); CALCIUM 8.3 MG/DL (8.5-10.1); CHLORIDE 102 MMOL/L (99-107); CREATININE 0.54 MG/DL (0.40-0.90); GLUCOSE 101 MG/DL (70-104); POTASSIUM 4.3 MMOL/L (3.5-5.1); SODIUM 137 MMOL/L (135-145); TOTAL CARBON DIOXIDE 28.1 MMOL/L (24-32); TOTAL PROTEIN 6.1 G/DL (6.4-8.2); eCRCL 79 ML/MIN; eGFR > 90 ML/MIN
[2024-06-25 14:34] LABS: CREATINE KINASE 78 U/L (26-192); PRO BRAIN NATRIURETIC PEPTIDE 468 PG/ML (0-450)
[2024-06-25 14:40] LABS: BILIRUBIN,URINE MODERATE (Neg); CLARITY,URINE CLOUDY (Clear); COLOR,URINE YELLOW (Yellow); GLUCOSE, URINE 500 mg/dl (Neg); KETONES,URINE >=80 mg/dl (Neg); LEUKOCYTE ESTERASE ,URINE MODERATE (Neg); OCCULT BLOOD,URINE TRACE-INTACT (Neg); PROTEIN,URINE 100 mg/dl (Neg)
[2024-06-25] MEDS: normal saline 1000ml 1,000 ML IV ONE ×2 (14:43→16:16)
[2024-06-25 14:44] LABS: NITRITES, URINE NEGATIVE (Neg); UA COLLECTION TYPE NON-SPECIFIED
[2024-06-25 14:47] LABS: TRANSITIONAL EPI CELLS,URINE MODERATE /HPF; WBC,URINE TNTC /HPF (0-4); YEAST MANY /HPF (NEGATIVE)
[2024-06-25 14:48] LABS: SQUAMOUS EPITHELIAL CELL,UR MODERATE /LPF (FEW)
[2024-06-25 14:50] LABS: AMORPHOUS URATES 2+; BACTERIA,URINE 1+ /HPF (Neg)
[2024-06-25] MEDS ORDERED: MIRT-66 PO (15:34)
[2024-06-25] MEDS ORDERED: ATOR-2 PO (15:34)
[2024-06-25] MEDS ORDERED: RIVA15TA PO (15:37)
[2024-06-25] MEDS ORDERED: DULO60CA65 PO (15:39)
[2024-06-25] MEDS: CefTRIAXone 2gm/D5W 50ml BAG 50 ML IV ONE (15:44)
[2024-06-25] MEDS ORDERED: magnesium sulf-water 4G/100mL 100 ML IV PRN (15:55)
[2024-06-25] MEDS ORDERED: magnesium hydroxide 30ml (MOM) UD suspension PO PRN (15:55)
[2024-06-25] MEDS ORDERED: HYDROcodone/acetaminophen 10/325mg tab PO PRN (15:55)
[2024-06-25] MEDS ORDERED: potassium Cl 20 mEq SR tablet PO PRN ×2 (15:55)
[2024-06-25] MEDS ORDERED: magnesium sulf-water 2g/50mL 50 ML IV PRN (15:55)
[2024-06-25] MEDS ORDERED: mag hydrox/Alum hydrox/simeth 30ml oral suspension PO PRN (15:55)
[2024-06-25] MEDS: dextrose 5%-1/2 normal saline 1,000 ML IV SCH (15:55)
[2024-06-25] MEDS ORDERED: ondansetron/PF 4mg/2ml inj IV PRN (15:55)
[2024-06-25] MEDS: heparin, porcine 5000 units/ml vial SQ SCH (17:34)
[2024-06-25 18:00] VITALS: BP 141/89; PULSE 98; RESP 18; TEMP 96.4; O2SAT 100
[2024-06-25 20:00] VITALS: RESP 12; O2SAT 96
[2024-06-25] MEDS: K and/or MAG REPLACEMENT MC SCH (20:00)
[2024-06-25] MEDS ORDERED: docusate sod 100mg capsule PO SCH (20:00)
[2024-06-25] MEDS ORDERED: docusate sodium 100mg/10ml UD cup PO SCH (20:19)
[2024-06-25] MEDS ORDERED: POTASSIUM CHLORIDE 20 MEQ/15 ML oral solution PO PRN ×2 (20:25)
[2024-06-25] MEDS: docusate sodium 100mg/10ml UD cup PO SCH (20:37)
[2024-06-25 22:00] VITALS: BP 132/92; PULSE 103; RESP 14; TEMP 96.3; O2SAT 92
[2024-06-26] VITALS (7 sets, daily range): BP systolic 122–132; BP diastolic 66–86; PULSE 79–99; RESP 12–20; TEMP 97.2–98.6; O2SAT 92–100
[2024-06-26] MEDS: nystatin 15 GM powder TP SCH ×2 (00:01→21:00)
[2024-06-26 07:36] LABS: BASOPHILS % (AUTO) 0.4 % (0-1); EOSINOPHILS # (AUTO) 0.5 X10'3 (0-0.9); EOSINOPHILS % (AUTO) 5.3 % (0-6); HEMOGLOBIN 12.6 g/dl (12.0-16.0); LYMPHOCYTES # (AUTO) 1.4 X10'3 (1.1-4.8); LYMPHOCYTES % (AUTO) 14.9 % (21-51); MEAN CORPUSCULAR HEMOGLOBIN 29.7 PG (27.0-31.0); MEAN CORPUSCULAR HGB CONC 32.4 g/dL (33.0-36.5); MEAN CORPUSCULAR VOLUME 91.7 FL (78-98); MEAN PLATELET VOLUME 7.6 FL (7.4-10.4); MONOCYTES # (AUTO) 0.9 X10'3 (0-0.9); MONOCYTES % (AUTO) 9.7 % (2-12); NEUTROPHILS # (AUTO) 6.6 X10'3 (1.8-7.7); NEUTROPHILS % (AUTO) 69.7 % (42-75); PLATELET COUNT 302 X10'3 (140-440); RED BLOOD COUNT 4.26 X10'6 (4.20-5.60); RED CELL DISTRIBUTION WIDTH 17.1 % (11.5-14.5); WHITE BLOOD COUNT 9.5 X10'3 (4.5-11.0)
[2024-06-26] MEDS: Fluticasone/Salmeterol (Advair 250-50 Diskus) IH SCH (08:00)
[2024-06-26] MEDS ORDERED: nitrofurantoin macrocrystal 100mg capsule PO SCH (08:00)
[2024-06-26] MEDS ORDERED: traMADol 50MG tablet PO PRN (08:00)
[2024-06-26 08:12] LABS: ALANINE AMINOTRANSFERASE 31 U/L (12-78); ALBUMIN 1.9 G/DL (3.4-5.0); ALBUMIN/GLOBULIN RATIO 0.6 (1.1-1.5); ALKALINE PHOSPHATASE 233 IU/L (46-116); ANION GAP 10 (8-16); ASPARTATE AMINO TRANSFERASE 38 U/L (10-37); BILIRUBIN,TOTAL 0.6 MG/DL (0.1-1.0); BLOOD UREA NITROGEN 14 MG/DL (7-18); BUN/CREATININE RATIO 36.8 (10.0-20.0); CALCIUM 7.6 MG/DL (8.5-10.1); CHLORIDE 104 MMOL/L (99-107); CREATININE 0.38 MG/DL (0.40-0.90); GLUCOSE 118 MG/DL (70-104); MAGNESIUM 1.4 MG/DL (1.5-2.4); POTASSIUM 3.4 MMOL/L (3.5-5.1); SODIUM 138 MMOL/L (135-145); TOTAL CARBON DIOXIDE 23.9 MMOL/L (24-32); TOTAL PROTEIN 5.2 G/DL (6.4-8.2); eCRCL 112 ML/MIN; eGFR > 90 ML/MIN
[2024-06-26] MEDS: CefTRIAXone/D5W-Rocephin 1gm 50 ML IV SCH (08:34)
[2024-06-26] MEDS: atorvastatin 20mg tablet PO SCH (08:34)
[2024-06-26] MEDS: metoprolol tartrate 12.5mg (1/2 tablet) PO SCH (08:35)
[2024-06-26] MEDS: gabapentin 300mg capsule PO SCH (08:35)
[2024-06-26] MEDS: duloxetine 30mg CAPSULE.DR PO SCH (08:35)
[2024-06-26] MEDS: nitrofurantoin macrocrystal 50mg capsule PO SCH (08:44)
[2024-06-26] MEDS: potassium Cl 20 mEq SR tablet PO PRN (17:26)
[2024-06-26] MEDS: mirtazapine 15mg tablet PO SCH (20:36)
[2024-06-26] MEDS: pantoprazole 40mg Tablet.DR PO SCH (20:37)
[2024-06-26] MEDS: rivaroxaban 15mg tablet PO SCH (20:37)
[2024-06-26] MEDS: potassium Cl 40MEQ/1/2NS 520ml 520 ML IV PRN (22:07)
[2024-06-27] VITALS (10 sets, daily range): BP systolic 104–135; BP diastolic 66–102; PULSE 61–102; RESP 15–18; TEMP 97–97.8; O2SAT 94–99
[2024-06-27 06:00] LABS: BASOPHILS % (AUTO) 0.4 % (0-1); EOSINOPHILS # (AUTO) 0.8 X10'3 (0-0.9); EOSINOPHILS % (AUTO) 8.2 % (0-6); HEMATOCRIT 36.8 % (35.0-45.0); HEMOGLOBIN 12.2 g/dl (12.0-16.0); LYMPHOCYTES # (AUTO) 1.2 X10'3 (1.1-4.8); LYMPHOCYTES % (AUTO) 12.8 % (21-51); MEAN CORPUSCULAR HEMOGLOBIN 29.8 PG (27.0-31.0); MEAN CORPUSCULAR HGB CONC 33.1 g/dL (33.0-36.5); MEAN CORPUSCULAR VOLUME 89.9 FL (78-98); MEAN PLATELET VOLUME 7.1 FL (7.4-10.4); MONOCYTES # (AUTO) 0.9 X10'3 (0-0.9); MONOCYTES % (AUTO) 9.4 % (2-12); NEUTROPHILS # (AUTO) 6.6 X10'3 (1.8-7.7); NEUTROPHILS % (AUTO) 69.2 % (42-75); PLATELET COUNT 261 X10'3 (140-440); RED BLOOD COUNT 4.09 X10'6 (4.20-5.60); RED CELL DISTRIBUTION WIDTH 16.8 % (11.5-14.5); WHITE BLOOD COUNT 9.6 X10'3 (4.5-11.0)
[2024-06-27 06:13] LABS: ALANINE AMINOTRANSFERASE 30 U/L (12-78); ALBUMIN 1.8 G/DL (3.4-5.0); ALBUMIN/GLOBULIN RATIO 0.6 (1.1-1.5); ALKALINE PHOSPHATASE 218 IU/L (46-116); ANION GAP 4 (8-16); ASPARTATE AMINO TRANSFERASE 32 U/L (10-37); BILIRUBIN,TOTAL 0.5 MG/DL (0.1-1.0); BLOOD UREA NITROGEN 8 MG/DL (7-18); BUN/CREATININE RATIO 16.3 (10.0-20.0); CALCIUM 7.7 MG/DL (8.5-10.1); CHLORIDE 107 MMOL/L (99-107); CREATININE 0.49 MG/DL (0.40-0.90); GLUCOSE 100 MG/DL (70-104); MAGNESIUM 1.4 MG/DL (1.5-2.4); POTASSIUM 4.1 MMOL/L (3.5-5.1); SODIUM 140 MMOL/L (135-145); TOTAL CARBON DIOXIDE 28.7 MMOL/L (24-32); eCRCL 87 ML/MIN; eGFR > 90 ML/MIN
[2024-06-27] MEDS: HYDROcodone/acetaminophen 5mg/325mg tablet PO PRN (13:56)
[2024-06-27] MEDS: magnesium Cl slow-release 64mg tablet PO PRN (20:46)
[2024-06-28] VITALS (7 sets, daily range): BP systolic 119–147; BP diastolic 76–89; PULSE 60–98; RESP 14–20; TEMP 96.7–98.3; O2SAT 93–100
[2024-06-28 07:27] LABS: BASOPHILS % (AUTO) 0.5 % (0-1); EOSINOPHILS # (AUTO) 1.2 X10'3 (0-0.9); EOSINOPHILS % (AUTO) 12.4 % (0-6); HEMATOCRIT 36.7 % (35.0-45.0); HEMOGLOBIN 12.2 g/dl (12.0-16.0); LYMPHOCYTES # (AUTO) 1.1 X10'3 (1.1-4.8); LYMPHOCYTES % (AUTO) 11.9 % (21-51); MEAN CORPUSCULAR HEMOGLOBIN 29.8 PG (27.0-31.0); MEAN CORPUSCULAR HGB CONC 33.2 g/dL (33.0-36.5); MEAN CORPUSCULAR VOLUME 89.9 FL (78-98); MEAN PLATELET VOLUME 7.2 FL (7.4-10.4); MONOCYTES # (AUTO) 0.7 X10'3 (0-0.9); MONOCYTES % (AUTO) 7.7 % (2-12); NEUTROPHILS # (AUTO) 6.5 X10'3 (1.8-7.7); NEUTROPHILS % (AUTO) 67.5 % (42-75); PLATELET COUNT 266 X10'3 (140-440); RED BLOOD COUNT 4.08 X10'6 (4.20-5.60); WHITE BLOOD COUNT 9.6 X10'3 (4.5-11.0)
[2024-06-28 07:39] LABS: ALANINE AMINOTRANSFERASE 29 U/L (12-78); ALBUMIN 1.8 G/DL (3.4-5.0); ALBUMIN/GLOBULIN RATIO 0.5 (1.1-1.5); ALKALINE PHOSPHATASE 204 IU/L (46-116); ANION GAP 5 (8-16); ASPARTATE AMINO TRANSFERASE 31 U/L (10-37); BILIRUBIN,TOTAL 0.5 MG/DL (0.1-1.0); BLOOD UREA NITROGEN 8 MG/DL (7-18); BUN/CREATININE RATIO 15.1 (10.0-20.0); CALCIUM 7.7 MG/DL (8.5-10.1); CHLORIDE 105 MMOL/L (99-107); CREATININE 0.53 MG/DL (0.40-0.90); GLUCOSE 108 MG/DL (70-104); MAGNESIUM 1.3 MG/DL (1.5-2.4); POTASSIUM 3.4 MMOL/L (3.5-5.1); SODIUM 137 MMOL/L (135-145); TOTAL CARBON DIOXIDE 27.1 MMOL/L (24-32); TOTAL PROTEIN 5.2 G/DL (6.4-8.2); eCRCL 80 ML/MIN; eGFR > 90 ML/MIN
[2024-06-28] MEDS: hydrOXYzine 10 MG tablet PO PRN (10:59)
[2024-06-28] MEDS ORDERED: magnesium sulf-water 4G/100mL 100 ML IV PRN (16:25)
[2024-06-28] MEDS: magnesium Cl slow-release 64mg tablet PO PRN (17:34)
[2024-06-28] MEDS: acetaminophen 325mg tablet PO PRN (20:58)
[2024-06-28] MEDS: potassium Cl 20 mEq SR tablet PO PRN (21:04)
[2024-06-29] VITALS (10 sets, daily range): BP systolic 105–128; BP diastolic 55–78; PULSE 65–104; RESP 14–18; TEMP 97.4–98.5; O2SAT 95–99
[2024-06-29 06:20] LABS: BASOPHILS # (AUTO) 0.1 X10'3 (0-0.2); BASOPHILS % (AUTO) 1.1 % (0-1); EOSINOPHILS # (AUTO) 1.8 X10'3 (0-0.9); EOSINOPHILS % (AUTO) 18.8 % (0-6); LYMPHOCYTES # (AUTO) 1.1 X10'3 (1.1-4.8); LYMPHOCYTES % (AUTO) 12.1 % (21-51); MEAN CORPUSCULAR HEMOGLOBIN 29.7 PG (27.0-31.0); MEAN CORPUSCULAR HGB CONC 32.5 g/dL (33.0-36.5); MEAN CORPUSCULAR VOLUME 91.3 FL (78-98); MEAN PLATELET VOLUME 7.9 FL (7.4-10.4); MONOCYTES # (AUTO) 0.8 X10'3 (0-0.9); MONOCYTES % (AUTO) 8.9 % (2-12); NEUTROPHILS # (AUTO) 5.6 X10'3 (1.8-7.7); NEUTROPHILS % (AUTO) 59.1 % (42-75); PLATELET COUNT 290 X10'3 (140-440); RED BLOOD COUNT 4.05 X10'6 (4.20-5.60); WHITE BLOOD COUNT 9.4 X10'3 (4.5-11.0)
[2024-06-29 06:32] LABS: ALANINE AMINOTRANSFERASE 29 U/L (12-78); ALBUMIN 1.7 G/DL (3.4-5.0); ALBUMIN/GLOBULIN RATIO 0.5 (1.1-1.5); ALKALINE PHOSPHATASE 191 IU/L (46-116); ANION GAP 6 (8-16); ASPARTATE AMINO TRANSFERASE 30 U/L (10-37); BILIRUBIN,TOTAL 0.5 MG/DL (0.1-1.0); BLOOD UREA NITROGEN 6 MG/DL (7-18); CALCIUM 8.2 MG/DL (8.5-10.1); CHLORIDE 107 MMOL/L (99-107); GLUCOSE 96 MG/DL (70-104); MAGNESIUM 1.4 MG/DL (1.5-2.4); POTASSIUM 4.1 MMOL/L (3.5-5.1); SODIUM 139 MMOL/L (135-145); TOTAL PROTEIN 5.1 G/DL (6.4-8.2); eCRCL 106 ML/MIN; eGFR > 90 ML/MIN
[2024-06-29] MEDS: acetaminophen 325mg tablet PO PRN (17:49)
[2024-06-30] VITALS (7 sets, daily range): BP systolic 103–147; BP diastolic 64–77; PULSE 82–103; RESP 16–20; TEMP 96.6–98.3; O2SAT 92–99
[2024-06-30 06:37] LABS: ALANINE AMINOTRANSFERASE 29 U/L (12-78); ALBUMIN 1.8 G/DL (3.4-5.0); ALBUMIN/GLOBULIN RATIO 0.5 (1.1-1.5); ALKALINE PHOSPHATASE 198 IU/L (46-116); ANION GAP 4 (8-16); ASPARTATE AMINO TRANSFERASE 37 U/L (10-37); BILIRUBIN,TOTAL 0.6 MG/DL (0.1-1.0); BLOOD UREA NITROGEN 6 MG/DL (7-18); BUN/CREATININE RATIO 12.2 (10.0-20.0); CALCIUM 7.9 MG/DL (8.5-10.1); CHLORIDE 106 MMOL/L (99-107); CREATININE 0.49 MG/DL (0.40-0.90); GLUCOSE 82 MG/DL (70-104); SODIUM 138 MMOL/L (135-145); TOTAL CARBON DIOXIDE 28.4 MMOL/L (24-32); TOTAL PROTEIN 5.3 G/DL (6.4-8.2); eCRCL 87 ML/MIN; eGFR > 90 ML/MIN
[2024-06-30 06:38] LABS: POTASSIUM 4.1 MMOL/L (3.5-5.1)
[2024-06-30] MEDS: albuterol 2.5 MG/3 ML nebule NEB PRN (08:50)
[2024-06-30 08:58] LABS: BASOPHILS # (AUTO) 0.1 X10'3 (0-0.2); BASOPHILS % (AUTO) 0.7 % (0-1); EOSINOPHILS # (AUTO) 1.4 X10'3 (0-0.9); EOSINOPHILS % (AUTO) 14.7 % (0-6); HEMATOCRIT 36.5 % (35.0-45.0); LYMPHOCYTES # (AUTO) 1.2 X10'3 (1.1-4.8); LYMPHOCYTES % (AUTO) 12.4 % (21-51); MEAN CORPUSCULAR HEMOGLOBIN 29.6 PG (27.0-31.0); MEAN CORPUSCULAR HGB CONC 32.9 g/dL (33.0-36.5); MEAN CORPUSCULAR VOLUME 90.1 FL (78-98); MEAN PLATELET VOLUME 7.5 FL (7.4-10.4); MONOCYTES # (AUTO) 0.6 X10'3 (0-0.9); MONOCYTES % (AUTO) 6.8 % (2-12); NEUTROPHILS # (AUTO) 6.2 X10'3 (1.8-7.7); NEUTROPHILS % (AUTO) 65.4 % (42-75); PLATELET COUNT 276 X10'3 (140-440); RED BLOOD COUNT 4.05 X10'6 (4.20-5.60); WHITE BLOOD COUNT 9.4 X10'3 (4.5-11.0)
[2024-06-30] MEDS: magnesium sulf-water 2g/50mL 50 ML IV PRN (13:44)
[2024-06-30] MEDS: lactose-reduced food (Ensure Enlive) - 237ml bottle PO SCH (17:57)
[2024-07-01] VITALS (8 sets, daily range): BP systolic 113–141; BP diastolic 66–82; PULSE 72–100; RESP 14–20; TEMP 97–97.6; O2SAT 93–100
[2024-07-02] VITALS (8 sets, daily range): BP systolic 121–130; BP diastolic 68–78; PULSE 85–106; RESP 14–21; TEMP 97–97.7; O2SAT 95–96
[2024-07-02 06:07] LABS: BASOPHILS # (AUTO) 0.1 X10'3 (0-0.2); EOSINOPHILS # (AUTO) 1.4 X10'3 (0-0.9); EOSINOPHILS % (AUTO) 15.6 % (0-6); HEMATOCRIT 34.5 % (35.0-45.0); HEMOGLOBIN 11.6 g/dl (12.0-16.0); LYMPHOCYTES # (AUTO) 1.2 X10'3 (1.1-4.8); LYMPHOCYTES % (AUTO) 13.7 % (21-51); MEAN CORPUSCULAR HEMOGLOBIN 30.1 PG (27.0-31.0); MEAN CORPUSCULAR HGB CONC 33.5 g/dL (33.0-36.5); MEAN CORPUSCULAR VOLUME 89.7 FL (78-98); MEAN PLATELET VOLUME 7.7 FL (7.4-10.4); MONOCYTES # (AUTO) 0.8 X10'3 (0-0.9); MONOCYTES % (AUTO) 8.9 % (2-12); NEUTROPHILS # (AUTO) 5.4 X10'3 (1.8-7.7); NEUTROPHILS % (AUTO) 60.8 % (42-75); PLATELET COUNT 282 X10'3 (140-440); RED BLOOD COUNT 3.85 X10'6 (4.20-5.60); RED CELL DISTRIBUTION WIDTH 16.6 % (11.5-14.5); WHITE BLOOD COUNT 8.9 X10'3 (4.5-11.0)
[2024-07-02 06:34] LABS: ALBUMIN 1.8 G/DL (3.4-5.0); ANION GAP 4 (8-16); BLOOD UREA NITROGEN 7 MG/DL (7-18); BUN/CREATININE RATIO 13.5 (10.0-20.0); CALCIUM 7.8 MG/DL (8.5-10.1); CHLORIDE 105 MMOL/L (99-107); CREATININE 0.52 MG/DL (0.40-0.90); GLUCOSE 106 MG/DL (70-104); POTASSIUM 4.2 MMOL/L (3.5-5.1); SODIUM 140 MMOL/L (135-145); TOTAL CARBON DIOXIDE 31.3 MMOL/L (24-32); eCRCL 82 ML/MIN; eGFR > 90 ML/MIN
[2024-07-02] MEDS: budesonide 0.5mg/2ml UD nebule IH SCH (19:25)
[2024-07-03] VITALS (11 sets, daily range): BP systolic 115–148; BP diastolic 61–94; PULSE 61–105; RESP 14–22; TEMP 97.3–98.5; O2SAT 91–100
[2024-07-04] VITALS (10 sets, daily range): BP systolic 115–141; BP diastolic 56–99; PULSE 53–106; RESP 14–20; TEMP 97–98.8; O2SAT 91–97
[2024-07-04 12:05] LABS: MAGNESIUM 1.5 MG/DL (1.5-2.4)
[2024-07-05] VITALS (10 sets, daily range): BP systolic 107–133; BP diastolic 54–86; PULSE 78–105; RESP 16–20; TEMP 97–99; O2SAT 93–97
[2024-07-06] VITALS (10 sets, daily range): BP systolic 107–135; BP diastolic 56–80; PULSE 53–92; RESP 16–20; TEMP 96.9–97.8; O2SAT 91–97
[2024-07-07 06:00] VITALS: BP 131/97; PULSE 70; RESP 16; TEMP 98.3; O2SAT 98
[2024-07-07 08:58] VITALS: PULSE 94; RESP 21; O2SAT 93
[2024-07-07 09:09] VITALS: PULSE 93; RESP 18
[2024-07-07 10:00] VITALS: BP 124/71; PULSE 65; RESP 20; TEMP 97.3; O2SAT 94
[2024-07-07 10:25] VITALS: RESP 20; O2SAT 93
== END 2024-07-07 12:15 | DRG 189 ==
LOC: ER 12:39 → ED HOLD 16:02 → EDBEDREQ 17:20 → SUR 3N 17:54
PROVIDERS: ADMIT Internal Medicine; ATTEND Internal Medicine
DX: J96.00 Acute respiratory failure, unspecified whether with hypoxia or hypercapnia (principal); N39.0 Urinary tract infection, site not specified; I48.92 Unspecified atrial flutter; E44.0 Moderate protein-calorie malnutrition; R65.10 Systemic inflammatory response syndrome (SIRS) of non-infectious origin without acute organ dysfunction; E86.0 Dehydration; I50.9 Heart failure, unspecified; I48.91 Unspecified atrial fibrillation; R53.81 Other malaise; E87.6 Hypokalemia; I27.20 Pulmonary hypertension, unspecified; I11.0 Hypertensive heart disease with heart failure; E78.5 Hyperlipidemia, unspecified; K21.9 Gastro-esophageal reflux disease without esophagitis; F32.A Depression, unspecified; G20.A1 Parkinson's disease without dyskinesia, without mention of fluctuations; F02.80 Dementia in other diseases classified elsewhere, unspecified severity, without behavioral disturbance, psychotic disturbance, mood disturbance, and anxiety; F41.9 Anxiety disorder, unspecified; J45.909 Unspecified asthma, uncomplicated; Z88.0 Allergy status to penicillin; Z88.2 Allergy status to sulfonamides; Z79.01 Long term (current) use of anticoagulants; Z79.899 Other long term (current) drug therapy; Z91.041 Radiographic dye allergy status; Z82.49 Family history of ischemic heart disease and other diseases of the circulatory system; Z91.012 Allergy to eggs; Z68.28 Body mass index [BMI] 28.0-28.9, adult
CPT/HCPCS: 36415; 71045; 80048; 80053; 81001; 82550; 83735; 83880; 84484; 85025; 87081; 87088; 92508; 92616; 93005; 94640; 94760; 97110; 97161; 99285; A4615; A6212; A6213; A6250; A6258; A6449; G0378; J0696; J1644; J3480; J7030; J7042